=== PATIENT | male | born 1985 | race Hispanic/Latino ===

== ENCOUNTER 2021-10-18 13:25 | Emergency (ER) | payer OTHER ==
[2021-10-18 18:12] LABS: Basophils # (Auto) 0.1 K/mm3 (0.0-0.1); Basophils % (Auto) 1.1 % (0.0-1.8); Eosinophils # (Auto) 0.1 K/mm3 (0.0-0.4); Eosinophils % (Auto) 0.8 % (0.0-4.3); Hematocrit 44.3 % (35.5-45.6); Hemoglobin 14.7 gm/dl (11.8-15.2); Lymphocytes # (Auto) 1.4 K/mm3 (1.2-5.4); Lymphocytes % (Auto) 16.1 % (13.4-35.0); Mean Corpuscular HGB Conc 33 % (32-34); Mean Corpuscular Volume 97 fl (84-94); Monocytes # (Auto) 0.6 K/mm3 (0.0-0.8); Monocytes % (Auto) 6.6 % (0.0-7.3); Platelet Count 245 K/mm3 (140-440); Red Blood Count 4.58 M/mm3 (3.65-5.03); Red Cell Distribution Width 13.6 % (13.2-15.2)
[2021-10-18 18:32] LABS: Alanine Aminotransferase 26 units/L (7-56); Albumin 4.9 g/dL (3.9-5); Blood Urea Nitrogen 11 mg/dL (9-20); Calcium 9.2 mg/dL (8.4-10.2); Hemolysis Index 7
[2021-10-18 18:38] LABS: BUN/Creatinine Ratio 18
--- NOTE | 2021-10-18 19:02 | Emergency Department Report ---
ED Psych HPI - General Chief Complaint: Psych Stated Complaint: NEEDS DETOX Time Seen by Provider: 10/18/21 16:49 Source: patient Mode of arrival: Ambulatory - History of Present Illness MD Complaint: suicidal ideation -: Gradual, week(s) History of same: Yes Quality: constant Worsens With: achohol, drug use Context: recent alcohol abuse, recent drug abuse - Related Data Allergies Allergy/AdvReac Type Severity Reaction Status Date / Time Penicillins Allergy Unknown Verified 10/18/21 16:37 ED Review of Systems ROS: Stated complaint: NEEDS DETOX Other details as noted in HPI Constitutional: denies: chills, fever Eyes: denies: eye pain, eye discharge, vision change ENT: denies: ear pain, throat pain Respiratory: denies: cough, shortness of breath, wheezing Cardiovascular: denies: chest pain, palpitations Endocrine: no symptoms reported Gastrointestinal: denies: abdominal pain, nausea, diarrhea Genitourinary: denies: urgency, dysuria Musculoskeletal: denies: back pain, joint swelling, arthralgia Skin: denies: rash, lesions Neurological: denies: headache, weakness, paresthesias Psychiatric: denies: anxiety, depression Hematological/Lymphatic: denies: easy bleeding, easy bruising ED Past Medical Hx - Past Medical History Previous Medical History?: No Hx Hypertension: No Hx CVA: No Hx Psychiatric Treatment: Yes - Surgical History Past Surgical History?: No ED Physical Exam - General Limitations: No Limitations General appearance: alert, in no apparent distress - Head Head exam: Present: atraumatic, normocephalic - Eye Eye exam: Present: normal appearance - ENT ENT exam: Present: mucous membranes moist - Neck Neck exam: Present: normal inspection - Respiratory Respiratory exam: Present: normal lung sounds bilaterally. Absent: respiratory distress - Cardiovascular Cardiovascular Exam: Present: regular rate, normal rhythm. Absent: systolic murmur, diastolic murmur, rubs, gallop - GI/Abdominal GI/Abdominal exam: Present: soft, normal bowel sounds - Rectal Rectal exam: Present: deferred - Extremities Exam Extremities exam: Present: normal inspection - Back Exam Back exam: Present: normal inspection - Neurological Exam Neurological exam: Present: alert, oriented X3 - Psychiatric Psychiatric exam: Present: depressed, anxious, suicidal ideation - Skin Skin exam: Present: warm, dry, intact, normal color. Absent: rash ED Course Vital Signs 10/18/21 16:35 Temperature 98.4 F Pulse Rate 116 H Respiratory 18 Rate Blood Pressure 130/90 O2 Sat by Pulse 96 Oximetry ED Medical Decision Making - Lab Data Result diagrams: 10/18/21 17:25 10/18/21 17:25 Critical care attestation.: If time is entered above; I have spent that time in minutes in the direct care of this critically ill patient, excluding procedure time. ED Disposition Clinical Impression: Suicidal ideation Disposition: [address] [place] [address] Is pt being admited?: Yes Does the pt Need Aspirin: No Condition: Stable Referrals: PRIMARY CARE, [Primary Care Provider] - 3-5 Days
[2021-10-18] MEDS ORDERED: diphenhydrAMINE 50 MG/ML VIAL ONE (19:12)
[2021-10-18] MEDS ORDERED: LORazepam 1 MG TAB PO ONE (22:23)
[2021-10-18] MEDS ORDERED: LORazepam 2 MG/ML VIAL IV PRN (22:57)
[2021-10-19] MEDS: LORazepam 2 MG TAB PO PRN ×4 (01:52→17:49)
[2021-10-19 05:15] LABS: Bilirubin,Urine NEG (Negative); Blood,Urine NEG (Negative); Color,Urine Straw (Yellow); Protein,Urine <15 mg/dL mg/dL (Negative); RBC,Urine < 1.0 /HPF (0.0-6.0); Urobilinogen,Urine < 2.0 mg/dL (<2.0)
[2021-10-19 05:23] LABS: Amphetamine Screen,Urine Negative; Benzodiazepines Screen,Urine Negative; Cannabinoid Screen,Urine Negative; Methadone Screen,Urine Negative; Opiate Screen,Urine Negative
[2021-10-19 05:41] LABS: Cocaine Screen,Urine Positive
--- NOTE | 2021-10-19 09:40 | Consultation ---
History of Present Illness - Reason for Consult Consult date: 10/19/21 Reason for consult: SI, Alcohol/cocaine detox - History of Present Psychiatric Illness The patient was seen today. He keeps his face partially covered mostly with his linen. He is a 36y/o male patient who presented to the ER for suicidal thoughts with no plan. He verbalizes feeling depressed. The patient also says he needs detox from alcohol. He says "I drink anywhere from 4 to 15 beers a day and a bottle or two of liquor." He says his last drink was yesterday. The patient is sniffing a lot. I ask him was he crying. He says "yea, but mostly my nose is running from doing so much coke." He denies any psychiatric history. He denies being on any psych meds. He says he's tried rehab but failed. The patient states he is employed with family support. He denies hallucinations of any kind. REVIEW OF SYSTEMS Constitutional: Negative for weight loss ENT: Negative for stridor Respiratory: Negative for cough or hemoptysis All other systems reviewed and are negative MENTAL STATUS EXAMINATION General Appearance and Behavior: Age appropriate, good hygiene, wearing appropriate clothes. calm, and cooperative Cooperation: Cooperative Psychomotor Behavior: Psychomotor normal Mood: depressed Affect and affective range: congruent with stated mood Thought Process: goal directed Thought Content: Denies Speech: Increased tone and pace Suicidal Ideation: Yes Homicidal Ideation: Denies Hallucinations: Denies Delusions: None elicited Impulse Control: poor Insight and Judgment: poor insight and fair judgment Memory: Limited Attention: Attentive Orientation: a/o x 3 Assessment (1) Polysubstance Abuse (2) MDD Treatment Plan 1013 Start Prozac 20mg po daiy Start Doxepin 10mg po qhs Start Vistaril 25mg po BID Agree with CIWA Disposition: Recommend acute psychiatric inpatient treatment Will follow. Thanks Case staffed with Dr. Gonzalez Medications and Allergies Allergies Allergy/AdvReac Type Severity Reaction Status Date / Time Penicillins Allergy Unknown Verified 10/18/21 16:37 Active Meds: Active Medications Lorazepam (Lorazepam 2 Mg Tab) 2 mg PO Q1HR PRN PRN Reason: CIWA-Ar 8-15 Last Admin: 10/19/21 08:56 Dose: 2 mg Documented by: Lorazepam (Lorazepam 2 Mg Tab) 4 mg PO Q1HR PRN PRN Reason: CIWA-Ar 16-25 Lorazepam (Lorazepam 2 Mg/Ml Vial) 4 mg IV Q15MIN PRN PRN Reason: CIWA-Ar >25 Mental Status Exam - Vital signs Last Vital Signs Temp 97.6 F 10/19/21 09:31 Pulse 82 10/19/21 09:31 Resp 16 10/19/21 09:31 BP 144/95 10/19/21 09:31 Pulse Ox 98 10/19/21 09:31 Results Result Diagrams: 10/18/21 17:25 10/18/21 17:25 Abnormal lab results 10/18/21 10/18/21 10/18/21 Range/Units 17:25 17:25 17:25 MCV 97 H (84-94) fl Seg Neutrophils % 75.4 H (40.0-70.0) % Sodium 131 L (137-145) mmol/L Chloride 91.8 L (98-107) mmol/L Carbon Dioxide 21 L (22-30) mmol/L Creatinine 0.6 L (0.8-1.3) mg/dL Glucose 111 H (75-100) mg/dL AST 44 H (5-40) units/L Salicylates < 0.3 L (2.8-20.0) mg/dL Acetaminophen (10.0-30.0) ug/mL Plasma/Serum Alcohol (0-0.07) % 10/18/21 10/18/21 Range/Units 17:25 17:25 MCV (84-94) fl Seg Neutrophils % (40.0-70.0) % Sodium (137-145) mmol/L Chloride (98-107) mmol/L Carbon Dioxide (22-30) mmol/L Creatinine (0.8-1.3) mg/dL Glucose (75-100) mg/dL AST (5-40) units/L Salicylates (2.8-20.0) mg/dL Acetaminophen 5.0 L (10.0-30.0) ug/mL Plasma/Serum Alcohol 0.32 H (0-0.07) % All other labs normal.
--- NOTE | 2021-10-19 11:27 | Event Note ---
Date: 10/19/21 Patient is a 36-year-old male admitted to the ER for evaluation of suicidal ideation. Patient also found to be alcohol intoxicated and his UDS showed cocaine. Vital signs stable. Labs reviewed and is unremarkable except for UDS positive for cocaine. I will repeat his alcohol level today.
[2021-10-19] MEDS: FLUoxetine 20 MG CAP PO SCH (11:54)
[2021-10-19] MEDS: hydrOXYzine PAMOATE 25 MG CAP PO SCH ×2 (11:54→22:17)
[2021-10-19] MEDS ORDERED: DOXEPIN 10 MG CAP PO SCH (22:00)
[2021-10-20] MEDS: LORazepam 2 MG TAB PO PRN ×4 (01:09→14:34)
[2021-10-20] MEDS: hydrOXYzine PAMOATE 25 MG CAP PO SCH ×2 (10:29→23:19)
[2021-10-20] MEDS: FLUoxetine 20 MG CAP PO SCH (10:29)
[2021-10-20] MEDS ORDERED: IBUPROFEN 600 MG TAB PO ONE (10:39)
[2021-10-20] MEDS ORDERED: NICOTINE 21 MG/24 HR PATCH TD ONE (10:46)
--- NOTE | 2021-10-20 11:15 | XRay Report ---
CHEST 2 VIEWS INDICATION / CLINICAL INFORMATION: Injury with chest pain. COMPARISON: None available. FINDINGS: SUPPORT DEVICES: None. HEART / MEDIASTINUM: The heart size and pulmonary vasculature are normal. The aorta is normal in robin holly and there is no mediastinal widening. LUNGS / PLEURA: No significant pulmonary or pleural abnormality. No pneumothorax. ADDITIONAL FINDINGS: No acute osseous abnormality is seen. IMPRESSION: No acute findings. Signer Name: Diego Herrera MD Signed: 10/20/2021 11:10 AM Workstation Name: [id number]
--- NOTE | 2021-10-20 11:20 | Progress Note ---
Subjective - Reason for Consult Consult date: 10/20/21 Reason for consult: SI - Chief Complaint Chief complaint: The patient was seen today. He verbalizes being depressed and needing help. He also endorses suicidal thoughts by running into traffic. He denies hallucinations of any kind. The patient says he didn't sleep well. REVIEW OF SYSTEMS Constitutional: Negative for weight loss ENT: Negative for stridor Respiratory: Negative for cough or hemoptysis All other systems reviewed and are negative MENTAL STATUS EXAMINATION General Appearance and Behavior: Age appropriate, good hygiene, wearing delroy ropriate clothes. calm, and cooperative Cooperation: Cooperative Psychomotor Behavior: Psychomotor normal Mood: depressed Affect and affective range: congruent with stated mood Thought Process: goal directed Thought Content: Denies Speech: Increased tone and pace Suicidal Ideation: Yes Homicidal Ideation: Denies Hallucinations: Denies Delusions: None elicited Impulse Control: poor Insight and Judgment: poor insight and fair judgment Memory: Limited Attention: Attentive Orientation: a/o x 3 Assessment (1) Polysubstance Abuse (2) MDD Treatment Plan 1013 Increase Prozac 30mg po daiy Increase Doxepin 25mg po qhs Continue Vistaril 25mg po BID Agree with CIWA Disposition: Recommend acute psychiatric inpatient treatment Will follow. Thanks Case staffed with Dr. Gonzalez Mental Status Exam - Vital signs Last Vital Signs Temp 97.8 F 10/20/21 07:50 Pulse 85 10/20/21 07:50 Resp 18 10/20/21 07:50 BP 122/83 10/20/21 07:50 Pulse Ox 97 10/20/21 08:07
[2021-10-20] MEDS ORDERED: HALOPERIDOL LACTATE 5 MG/1 ML INJ IM ONE (11:21)
--- NOTE | 2021-10-20 11:24 | Emergency Department Report ---
Blank Doc - Documentation Documentation: 36-year-old male 2013 for suicidal ideation with cocaine abuse and alcohol dep endence. Currently seen Ativan as per [facility] protocol. Vital signs remained stable or signs of hypotension or tachycardia. Patient developed only very patient had only very mild tremors on examination. Nurse reported patient having episodes of agitation and restlessness despite Ativan. IM Haldol ordered. Patient currently receiving p.o. meds as per mental health. Covid test pending
[2021-10-20] MEDS ORDERED: LORazepam 2 MG TAB PO PRN ×2 (19:13)
[2021-10-20] MEDS ORDERED: DOXEPIN 25 MG CAP PO SCH (22:00)
[2021-10-20 22:55] VITALS: BP 138/95
[2021-10-20] MEDS ORDERED: ZIPRASIDONE MESYLATE 20 MG VIAL IM ONE (23:49)
[2021-10-21] MEDS: hydrOXYzine PAMOATE 25 MG CAP PO SCH (09:47)
[2021-10-21] MEDS ORDERED: FLUoxetine 10 MG TAB PO SCH (10:00)
--- NOTE | 2021-10-21 11:47 | Progress Note ---
Subjective - Reason for Consult Consult date: 10/21/21 Reason for consult: alcohol/drugs - Chief Complaint Chief complaint: The patient was seen today. He says "I feel much better." He says "I'm irritated because they won't let me use the phone." He says "I'm ready to go. I'm not suicidal or any of that. I came here for my alcohol and drugs." He denies hallucinations of any kind. REVIEW OF SYSTEMS Constitutional: Negative for weight loss ENT: Negative for stridor Respiratory: Negative for cough or hemoptysis All other systems reviewed and are negative MENTAL STATUS EXAMINATION General Appearance and Behavior: Age appropriate, good hygiene, wearing appropriate clothes. calm, and cooperative Cooperation: Cooperative Psychomotor Behavior: Psychomotor normal Mood: irritated Affect and affective range: congruent with stated mood Thought Process: goal directed Thought Content: Denies Speech: Increased tone and pace Suicidal Ideation: Denies Homicidal Ideation: Denies Hallucinations: Denies Delusions: None elicited Impulse Control: Limited Insight and Judgment: Limited insight and fair judgment Memory: Limited Attention: Attentive Orientation: a/o x 3 Assessment (1) Polysubstance Abuse (2) MDD Treatment Plan d/c 1013 Prozac 40mg po daiy Doxepin 25mg po qhs Vistaril 25mg po BID Disposition: Do not recommend acute psychiatric inpatient treatment. The patient understands that if SI/HI arise he is to seek immediate assistance. The coordinating producer to give the patient all necessary resources including drug and [facility] rehab. The patient to abstain from all illicit drug use and alcohol He is to follow up with outpatient psych in 7 to 14 days upon discharge Will sign off. Thanks Case staffed with Dr. Gonzalez Mental Status Exam - Vital signs Last Vital Signs Temp 97.3 F L 10/20/21 22:54 Pulse 108 H 10/20/21 22:54 Resp 18 10/20/21 22:54 BP 138/95 10/20/21 22:54 Pulse Ox 96 10/20/21 22:54
--- NOTE | 2021-10-21 12:35 | Emergency Department Report ---
Blank Doc - Documentation Documentation: Patient feels better this morning. He is no longer suicidal or homicidal. Th ere is no evidence of acute delusion or psychosis. He feels comfortable going home and would like to do so. Psychiatric services agrees. Resources have been provided. He can follow-up with his family physician.
== END 2021-10-21 13:05 | disposition home or self-care (01) ==
LOC: ED 13:25
DX: F32.9 Major depressive disorder, single episode, unspecified (principal); R45.851 Suicidal ideations; F19.10 Other psychoactive substance abuse, uncomplicated; Z20.822 Contact with and (suspected) exposure to COVID-19
CPT/HCPCS: 36415; 71046; 80053; 80307; 81001; 85025; 96372; 99284; J1200; J1630; J3486; Q0177; U0003; 80320; J3490; G0480

== ENCOUNTER 2022-02-23 13:30 | Emergency (ER) | payer SELFPAY ==
[2022-02-23] MEDS ORDERED: LORazepam 2 MG/ML VIAL IV PRN ×3 (13:45)
--- NOTE | 2022-02-23 13:45 | Emergency Department Report ---
HPI - General Chief Complaint: Psych Time Seen by Provider: 02/23/22 13:37 - HPI HPI: Room 12 The patient is a 36-year-old male present with chief complaint of suicidal ideation. Patient states he was released from care home this morning and stated he wanted to go home but cannot go home so he subsequently developed suicidal ideation. When asked if he done anything to harm himself the patient's initially says no but then says drank a lot of alcohol. The patient states he has a plan to walk out into traffic on [facility] ED Past Medical Hx - Past Medical History Previous Medical History?: No - Surgical History Past Surgical History?: No - Family History Family history: no significant - Social History Smoking Status: Current Every Day Smoker (1 pack/day) Substance Use Type: Alcohol (Daily), Other (Ecstasy) - Medications Home Medications: Home Medications Medication Instructions Recorded Confirmed Last Taken Type Doxepin [SINEquan] 25 mg PO QHS #30 capsule 02/24/22 Unknown Rx FLUoxetine HCL [PROzac] 40 mg PO QDAY #30 capsule 02/24/22 Unknown Rx hydrOXYzine PAMOATE [Vistaril] 25 mg PO BID PRN #60 capsule 02/24/22 Unknown Rx ED Review of Systems ROS: Stated complaint: SI WITH A PLAN Other details as noted in HPI Constitutional: no symptoms reported Eyes: denies: eye pain ENT: denies: throat pain Respiratory: no symptoms reported Cardiovascular: denies: chest pain Endocrine: no symptoms reported Gastrointestinal: denies: abdominal pain Genitourinary: denies: dysuria Musculoskeletal: denies: back pain Neurological: denies: headache Psychiatric: suicidal thoughts Physical Exam - Physical Exam Vital Signs: Vital Signs 02/23/22 13:31 Temperature 98 F Pulse Rate 97 H Respiratory 14 Rate Blood Pressure 141/90 [Left] O2 Sat by Pulse 99 Oximetry Physical Exam: GENERAL: The patient is well-developed well-nourished male appearing intoxicated sitting in chair not appearing to be in acute. [] HEENT: Normocephalic. Atraumatic. Extraocular motions are intact. Patient has moist mucous membranes. NECK: Supple. Trachea midline CHEST/LUNGS: Clear to auscultation. There is no respiratory distress noted. HEART/CARDIOVASCULAR: Regular. There is no tachycardia. There is no gallop rub or murmur. ABDOMEN: Abdomen is soft, nontender. Patient has normal bowel sounds. There is no abdominal distention. SKIN: There is no rash. There is no edema. There is no diaphoresis. NEURO: The patient is awake, alert, and oriented. The patient is cooperative. The patient has no focal neurologic deficits. The patient has normal speech. GCS 15 MUSCULOSKELETAL: There is no evidence of acute injury. ED Course Vital Signs 02/23/22 13:31 Temperature 98 F Pulse Rate 97 H Respiratory 14 Rate Blood Pressure 141/90 [Left] O2 Sat by Pulse 99 Oximetry ED Medical Decision Making - Lab Data Result diagrams: 02/23/22 16:42 02/23/22 16:42 - Differential Diagnosis Suicidal ideation Critical care attestation.: If time is entered above; I have spent that time in minutes in the direct care of this critically ill patient, excluding procedure time. ED Disposition Clinical Impression: Suicidal ideation, Major depression Disposition: HOME / SELF CARE / HOMELESS Is pt being admited?: No Does the pt Need Aspirin: No Condition: Stable Additional Instructions: Professional and Agency Contacts To help Resolve Crises(10/05) [place] Crisis Line: Suicide Prevention Line: Crisis Text Line: Text START to 235185 Emergency: 911 Outpatient COMMUNITY Behavioral Health Resources: DERYANNB: [facility] [address] [place], [place] [address] [facility] [address] [place] [address] [facility] - [address] [place] [address] Wednesday thru Wednesday - 8am - 5pm [place]: [facility] Address: [address], [place] [address] [facility] Address: [address] [place] [address] Wednesday thru Wednesday- 7am-2pm [facility] Address: [address] [place] [address] Wednesday thru Wednesday: 8:30AM-5PM OUTPATIENT MENTAL HEALTH RESOURCES [facility], [address], [place] [address] DOMINIQUE Adler MD: [address] [place], [place] [id number] [facility]: [address] [place] [address] [facility] [address] [place] [address] [phone] [facility]: [address] [place] [address] [phone] [facility]: [address] [facility] [address] [facility] [id number] [facility]: [address] [place] [address] Jc Wells MD: [address] [facility] [id number] [facility]: [address] [facility] [facility] [place], [place] [id number] [phone] [place] CRISIS AND ACCESS LINE: * In case of an emergency, please contact the following numbers: [place] Crisis and Access Line: Number: Crisis Text Line: (Text START) Number: 654615 Suicide Prevention Line: Number: Emergency Number: 911 SUBSTANCE ABUSE PROGRAMS: [facility]: Location: [place], [place] [facility] Address: [address] [place] [address] [facility]: Address: [address] [place] [address] [facility]: Address: [address] [place] [address] [facility]: Address: [address] [place] [address] [facility] Address: [address] [place] [id number]. Please contact above numbers to attempt placement into free based program. Medicaid Programs: [facility]: Address: [address] [facility], [place] [address] [facility]: Address: [address] [place] [address] Phone: [phone] HOMELESS RESOURCES: [facility] NEED HELP? If you are in need of help or know someone who does, please contact us at [email or web address] or call , or come to our offices at [address] [place] [address], Wednesday-Wednesday beginning at 8AM. [facility] Males only Admission at 7am Wed to Wed Address: [address] [address] [facility]agement Center [phone] Regular program admission occurs Wednesday through Wednesday at 7:00 am and operates on a first come, first serve basis. Because we cant anticipate program availability in advance and program spots are in high demand, we recommend arriving early. Space fills up fast! Next steps can include: Assignment to a [facility] program bed Connection to and placement in a partner program, or Referral to a partner agency [facility] [place] Admission at 4:30pm daily Address: [address] [place] [id number] [facility] Services Admission from 8am to 10am Daily No intake until 10/14/20 Address: [address] [place] [id number] [facility] [employer] goal is to take chronically homeless men and help them overcome their barriers, change them as human beings, making them productive and self-sufficient individuals. Each [employer] participant is housed at our facility for up to a year while they participate in transitional work (earning $7.40/hr for 30+ hours per week). All participants renounce dependency and remain drug and alcohol free. Personal support, case management, and workforce training is offered throughout the program. We also provide AA/NA Classes, GED classes, support in obtaining a student truck driver's licenses, help setting up a bank account, and life skill preparation courses. IF A MAN IS COMMITTED TO BEING CLEAN, TO ADDRESSING THE PAST, AND TO WORKING, WE WILL HELP HIM GET A CONCRETE PUMP OPERATOR JOB, TRANSPORTATION AND PERMANENT HOUSING WITHIN A YEAR. [facility] [address] [place] [address] [email or web address] Prescriptions: FLUoxetine HCL [PROzac] 40 mg PO QDAY #30 capsule Doxepin [SINEquan] 25 mg PO QHS #30 capsule hydrOXYzine PAMOATE [Vistaril] 25 mg PO BID PRN #60 capsule PRN Reason: Anxiety Referrals: [facility] [Outside] - 3-5 Days PRIMARY CARE, [Primary Care Provider] - 3-5 Days
[2022-02-23 17:27] LABS: Basophils # (Auto) 0.1 K/mm3 (0.0-0.1); Basophils % (Auto) 0.8 % (0.0-1.8); Eosinophils # (Auto) 0.1 K/mm3 (0.0-0.4); Hematocrit 43.4 % (35.5-45.6); Hemoglobin 14.5 gm/dl (11.8-15.2); Lymphocytes # (Auto) 2.3 K/mm3 (1.2-5.4); Lymphocytes % (Auto) 17.9 % (13.4-35.0); Mean Corpuscular HGB Conc 33 % (32-34); Mean Corpuscular Volume 95 fl (84-94); Monocytes % (Auto) 7.9 % (0.0-7.3); Platelet Count 233 K/mm3 (140-440); Red Blood Count 4.56 M/mm3 (3.65-5.03); Red Cell Distribution Width 12.9 % (13.2-15.2)
[2022-02-23 17:46] LABS: BUN/Creatinine Ratio 11; Blood Urea Nitrogen 9 mg/dL (9-20); Calcium 9.6 mg/dL (8.4-10.2); Hemolysis Index 9
[2022-02-24 09:58] VITALS: BP 115/74
--- NOTE | 2022-02-24 10:40 | Progress Note ---
Subjective - Reason for Consult Consult date: 02/24/22 Reason for consult: SI - Chief Complaint Chief complaint: HPI: The patient is a 36-year-old male present with chief complaint of suicidal ideation. Patient states he was released from long term this morning and stated he wanted to go home but cannot go home so he subsequently developed suicidal ideation. When asked if he done anything to harm himself the patient's initially says no but then says drank a lot of alcohol. The patient states he has a plan to walk out into traffic on [facility]. The patient was seen today. He is known to me from a previous visit. He is slightly irritable and reluctant to cooperate. His symptoms are vague. The patient says he feels "a little better" when asked how was he feeling. When asked what brought him to the hospital he says "I was suicidal." I ask the p atient was he currently feeling that way, he initially says no, then replies "a little bit." The patient admits to doing methamphetamines and alcohol daily. He says he doesn't take any meds. When asking him why wasn't he taking his meds, he replies "I don't know." Will reorder medications. No inpatient will be recommended, as this patient is stable enough to be seen by his outpatient psychiatrist. PAST PSYCHIATRIC HISTORY: Diagnoses: MDD, schizoaffective Suicide attempts or Self-harm behavior: Denies Prior psychiatric hospitalizations: Yes Substance Abuse history: alcohol, methamphetamines Previous psychiatric medications tried: prozac Outpatient treatment: Denies PAST MEDICAL HISTORY: None reported Family Psychiatric History: None reported or documented SOCIAL HISTORY Marital Status: Single Living Arrangements: alone Employment Status: Unemployed Access to guns/weapons: None reported Education: Ninth grade dropout History of Abuse: None reported Legal History: Yes specific details unknown REVIEW OF SYSTEMS Constitutional: Negative for weight loss ENT: Negative for stridor Respiratory: Negative for cough or hemoptysis All other systems reviewed and are negative MENTAL STATUS EXAMINATION General Appearance and Behavior: Age appropriate, good hygiene, wearing appropriate clothes, good eye contact, calm, cooperative Cooperation: reluctant to cooperative, but Guarded Psychomotor Behavior: Psychomotor normal Mood: "better" Affect and affective range: Euthymic Thought Process: goal directed Thought Content: none Speech: Normal tone and pace Suicidal Ideation: Denies, then "a little" Homicidal Ideation: Denies HI Impulse Control: Limited Insight and Judgment: Limited insight and judgment, Impaired Memory: Normal Attention: Attentive Orientation: Alert, oriented Assessment and Plan (1) Major Depressive Disorder (2) Polysubstance Dependence RECOMMENDATIONS d/c 1013 Prozac 20mg po daiy Doxepin 10mg po qhs Vistaril 25mg po BID BUSINESS CONTINUITY PLANNING DIRECTOR: Defer to primary DISPOSITION: Do not recommend acute inpatient psychiatric hospitalization. He understands that if any self harm thoughts or behaviors or any fear of endangerment are to arise he is to seek immediate assistance including but not limited to the crisis hotline, 1, ER. The cuff turner machine operator to further discuss safety plan The cuff turner machine operator is to give the patient resources for outpatient psychiatry, cognitive behavioral therapy, medication assistance, drug and alcohol rehab, transportation pass if needed, and fpc resources The patient to abstain from all illicit drug and alcohol use Follow up with outpatient psych and primary in 7 to 14 days upon discharge. Will sign off. Thank you for the consult. Please contact with any questions and/or concerns. Case staffed with Dr. Gonzalez. Mental Status Exam - Vital signs Last Vital Signs Temp 97.2 F L 02/24/22 08:56 Pulse 96 H 02/24/22 09:56 Resp 15 02/24/22 09:56 BP 115/74 02/24/22 09:56 Pulse Ox 100 02/24/22 09:56
[2022-02-24 11:15] LABS: Bilirubin,Urine NEG (Negative); Blood,Urine NEG (Negative); Color,Urine Yellow (Yellow); Protein,Urine <15 mg/dL mg/dL (Negative); RBC,Urine < 1.0 /HPF (0.0-6.0)
[2022-02-24 11:21] LABS: Amphetamine Screen,Urine Negative; Benzodiazepines Screen,Urine Negative; Cannabinoid Screen,Urine Negative; Cocaine Screen,Urine Negative; Methadone Screen,Urine Negative; Opiate Screen,Urine Negative
== END 2022-02-24 16:05 | disposition home or self-care (01) ==
LOC: ED 13:30 → EEVIPCON 13:30 → ED 02-24 16:05
DX: R45.851 Suicidal ideations (principal); F17.210 Nicotine dependence, cigarettes, uncomplicated; Z20.822 Contact with and (suspected) exposure to COVID-19; Z72.89 Other problems related to lifestyle; Z79.899 Other long term (current) drug therapy
CPT/HCPCS: 36415; 80048; 80307; 81001; 85025; 99284; U0003; 80320; G0480

== ENCOUNTER 2022-02-24 21:41 | Emergency (ER) | payer SELFPAY ==
[2022-02-25 08:51] LABS: Basophils # (Auto) 0.1 K/mm3 (0.0-0.1); Basophils % (Auto) 0.6 % (0.0-1.8); Eosinophils # (Auto) 0.3 K/mm3 (0.0-0.4); Eosinophils % (Auto) 2.2 % (0.0-4.3); Hematocrit 46.5 % (35.5-45.6); Hemoglobin 15.5 gm/dl (11.8-15.2); Lymphocytes # (Auto) 1.9 K/mm3 (1.2-5.4); Lymphocytes % (Auto) 15.8 % (13.4-35.0); Mean Corpuscular HGB Conc 33 % (32-34); Mean Corpuscular Volume 95 fl (84-94); Monocytes # (Auto) 0.9 K/mm3 (0.0-0.8); Monocytes % (Auto) 7.2 % (0.0-7.3); Platelet Count 260 K/mm3 (140-440); Red Blood Count 4.89 M/mm3 (3.65-5.03); Red Cell Distribution Width 12.9 % (13.2-15.2)
[2022-02-25 08:57] LABS: BUN/Creatinine Ratio 23; Blood Urea Nitrogen 18 mg/dL (9-20); Calcium 9.9 mg/dL (8.4-10.2); Hemolysis Index 5
[2022-02-25 09:27] VITALS: BP 125/86
--- NOTE | 2022-02-25 11:13 | Progress Note ---
Subjective - Reason for Consult Consult date: 02/25/22 Reason for consult: SI - Chief Complaint Chief complaint: The patient was seen today. He was cleared by psych yesterday. It's documented that the patient came and appeared intoxicated. The patient is vague in his symptoms and evasive. He says he was at a [facility] in [place]. When asking the patient was he still suicidal, he becomes irritable. He says "yall keep asking me that." He then says "it comes and goes." He denies hallucinations of any kind. The patient is clear from a psych standpoint. He can be managed on an outpatient basis. REVIEW OF SYSTEMS Constitutional: Negative for weight loss ENT: Negative for stridor Respiratory: Negative for cough or hemoptysis All other systems reviewed and are negative MENTAL STATUS EXAMINATION General Appearance and Behavior: Age appropriate, good hygiene, wearing appropriate clothes, good eye contact, calm, evasive, irritable at times Cooperation: reluctant to cooperative Psychomotor Behavior: Psychomotor normal Mood: "okay" Affect and affective range: Euthymic Thought Process: goal directed Thought Content: none Speech: Normal tone and pace Suicidal Ideation: comes and goes Homicidal Ideation: Denies HI Impulse Control: Limited Insight and Judgment: Limited insight and judgment, Impaired Memory: Normal Attention: Attentive Orientation: Alert, oriented Assessment and Plan (1) Major Depressive Disorder (2) Polysubstance Dependence RECOMMENDATIONS Continue meds prescribed yesterday 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 He understands that if any self harm thoughts or behaviors or any fear of endangerment are to arise he is to seek immediate assistance including but not limited to the crisis hotline, [address] [place] [address]. The support assistant to further discuss safety plan The support assistant is to give the patient resources for outpatient psychiatry, cognitive behavioral therapy, medication assistance, drug and alcohol rehab, transportation pass if needed, and group home resources The patient to abstain from all illicit drug and alcohol use Follow up with outpatient psych and primary in 7 to 14 days upon discharge. Will sign off. Thank you for the consult. Please contact with any questions and/or concerns. Case staffed with Dr. Gonzalez. Mental Status Exam - Vital signs Last Vital Signs Temp 98.0 F 02/24/22 21:50 Pulse 94 H 02/25/22 09:25 Resp 18 02/25/22 09:25 BP 125/86 02/25/22 09:25 Pulse Ox 99 02/25/22 09:25
--- NOTE | 2022-02-25 11:35 | Event Note ---
Date: 02/25/22 Patient has been evaluated by our psychiatric team and recommended discharge and outpatient follow-up. Patient appears to be intoxicated last night with an alcohol level of 0.08. Patient denies any suicidal homicidal ideation. No visual or auditory hallucination. Patient is medically and psychiatrically stable for discharge.
== END 2022-02-25 12:43 | disposition left against medical advice (07) ==
LOC: ED 21:41
DX: R45.851 Suicidal ideations (principal); Z53.21 Procedure and treatment not carried out due to patient leaving prior to being seen by health care provider
CPT/HCPCS: 36415; 80048; 80320; 85025; G0480

== ENCOUNTER 2022-04-04 00:47 | Emergency (ER) | payer SELFPAY ==
[2022-04-04] MEDS ORDERED: KETOROLAC 30 MG/1 ML INJ IV ONE (10:57)
[2022-04-04] MEDS ORDERED: KETOROLAC 60 MG/2 ML INJ IM ONE (10:57)
[2022-04-04] MEDS ORDERED: LORazepam 1 MG TAB PO ONE (10:57)
--- NOTE | 2022-04-04 11:00 | Emergency Department Report ---
ED General Adult HPI - General Chief complaint: Extremity Problem,Nontraumatic Stated complaint: SWOLLEN ANKLES Time Seen by Provider: 04/04/22 10:27 Source: patient Mode of arrival: Ambulatory Limitations: No Limitations - History of Present Illness Initial comments: Patient presents with complaints of bilateral leg pain and swelling x2 weeks. He states he is homeless and has not been evaluated for the symptoms. Patient is also a heavy alcohol drinker and last drink was yesterday. No tremors, chest pain, headache, shortness of breath, or fever per patient. He rates his pain as a 9/10 in severity. He denies any loss of sensation in his legs or difficulty moving his legs. Severity scale (0 -10): 8 - Related Data Previous Rx's Medication Instructions Recorded Last Taken Type Doxepin [SINEquan] 25 mg PO QHS #30 capsule 02/24/22 Unknown Rx FLUoxetine HCL [PROzac] 40 mg PO QDAY #30 capsule 02/24/22 Unknown Rx hydrOXYzine PAMOATE [Vistaril] 25 mg PO BID PRN #60 capsule 02/24/22 Unknown Rx Sulfamethoxazole/Trimethoprim 1 each PO BID 10 Days #20 tab 04/04/22 Unknown Rx [Bactrim DS TAB] cephALEXin [Keflex] 500 mg PO Q8HR 10 Days #30 cap 04/04/22 Unknown Rx Allergies Allergy/AdvReac Type Severity Reaction Status Date / Time Penicillins Allergy Unknown Verified 10/18/21 16:37 ED Review of Systems ROS: Stated complaint: SWOLLEN ANKLES Other details as noted in HPI Constitutional: denies: chills, fever Respiratory: denies: cough Cardiovascular: denies: chest pain Gastrointestinal: denies: abdominal pain Musculoskeletal: denies: back pain Skin: change in color Neurological: denies: numbness, paresthesias, abnormal gait Hematological/Lymphatic: denies: easy bleeding, swollen glands ED Past Medical Hx - Past Medical History Previous Medical History?: No - Surgical History Additional Surgical History: hernia - Social History Smoking Status: Current Every Day Smoker Substance Use Type: Alcohol - Medications Home Medications: Home Medications Medication Instructions Recorded Confirmed Last Taken Type Doxepin [SINEquan] 25 mg PO QHS #30 capsule 02/24/22 Unknown Rx FLUoxetine HCL [PROzac] 40 mg PO QDAY #30 capsule 02/24/22 Unknown Rx hydrOXYzine PAMOATE [Vistaril] 25 mg PO BID PRN #60 capsule 02/24/22 Unknown Rx Sulfamethoxazole/Trimethoprim 1 each PO BID 10 Days #20 tab 04/04/22 Unknown Rx [Bactrim DS TAB] cephALEXin [Keflex] 500 mg PO Q8HR 10 Days #30 cap 04/04/22 Unknown Rx ED Physical Exam - General Limitations: No Limitations General appearance: alert, in no apparent distress - Head Head exam: Present: atraumatic, normocephalic - Neck Neck exam: Present: normal inspection - Respiratory Respiratory exam: Present: normal lung sounds bilaterally. Absent: respiratory distress - Cardiovascular Cardiovascular Exam: Present: regular rate, normal rhythm. Absent: systolic murmur, diastolic murmur, rubs, gallop - GI/Abdominal GI/Abdominal exam: Present: soft. Absent: distended, tenderness - Neurological Exam Neurological exam: Present: alert, oriented X3 - Psychiatric Psychiatric exam: Present: normal affect, normal mood - Skin Skin exam: Present: warm, dry, intact, other (Bilateral lower leg 3+ pitting edema noted with cellulitic changes; pedal pulses are normal bilaterally; full range of motion of the ankle and lower legs is noted with normal sensation) ED Course Vital Signs 04/04/22 04/04/22 04/04/22 01:57 10:18 12:00 Temperature 97.9 F 97.9 F 98.1 F Pulse Rate 92 H 92 H 85 Respiratory 20 18 18 Rate Blood Pressure 120/82 120/82 Blood Pressure 120/75 120/75 [Right] O2 Sat by Pulse 96 98 99 Oximetry 04/04/22 13:56 Temperature 98.0 F Pulse Rate 82 Respiratory 18 Rate Blood Pressure Blood Pressure 121/70 [Right] O2 Sat by Pulse 100 Oximetry ED Medical Decision Making - Lab Data Result diagrams: 04/04/22 10:52 04/04/22 10:52 - Medical Decision Making Bilateral cellulitis of the lower extremities noted on exam. Ultrasound performed is negative for any blood clots. Pedal pulses are normal on exam. No paleness of the skin noted. Patient given IV clindamycin. No fever or tachycardia is noted and white blood cell count is normal. Lactic acid test not indicated. Patient is not septic at this time. Discussed importance of antibiotic compliance. Penicillin allergy noted in chart, however patient states rash with penicillin and denies anaphylaxis. Discussed strict return precautions in detail with patient who verbalizes understanding he is stable for discharge home and nontoxic-appearing Critical care attestation.: If time is entered above; I have spent that time in minutes in the direct care of this critically ill patient, excluding procedure time. ED Disposition Clinical Impression: Cellulitis Disposition: HOME / SELF CARE / HOMELESS Is pt being admited?: No Condition: Stable Instructions: Cellulitis, Adult Prescriptions: Sulfamethoxazole/Trimethoprim [Bactrim DS TAB] 1 each PO BID 10 Days #20 tab cephALEXin [Keflex] 500 mg PO Q8HR 10 Days #30 cap Referrals: REYES PERRY MD [Primary Care Provider] - 2-3 Days
[2022-04-04 11:04] LABS: Basophils % (Auto) 0.2 % (0.0-1.8); Eosinophils # (Auto) 0.3 K/mm3 (0.0-0.4); Eosinophils % (Auto) 4.2 % (0.0-4.3); Hematocrit 41.3 % (35.5-45.6); Hemoglobin 13.8 gm/dl (11.8-15.2); Lymphocytes # (Auto) 0.8 K/mm3 (1.2-5.4); Lymphocytes % (Auto) 11.9 % (13.4-35.0); Mean Corpuscular HGB Conc 34 % (32-34); Mean Corpuscular Volume 99 fl (84-94); Monocytes # (Auto) 0.7 K/mm3 (0.0-0.8); Monocytes % (Auto) 10.6 % (0.0-7.3); Platelet Count 257 K/mm3 (140-440); Red Blood Count 4.18 M/mm3 (3.65-5.03); Red Cell Distribution Width 14.9 % (13.2-15.2)
[2022-04-04 11:31] LABS: Alanine Aminotransferase 33 units/L (7-56); Albumin 4.2 g/dL (3.9-5); Blood Urea Nitrogen 7 mg/dL (9-20); Calcium 9.2 mg/dL (8.4-10.2); Hemolysis Index 5
[2022-04-04 11:34] LABS: BUN/Creatinine Ratio 10
--- NOTE | 2022-04-04 13:01 | Vascular Lab Report ---
Bilateral lower extremity Doppler venous ultrasound INDICATION: Swelling FINDINGS: Bilateral common femoral veins, superficial femoral veins and popliteal veins have normal c ompressibility and phasic flow IMPRESSION: No evidence for DVT. Signer Name: Juan Manuel Chatterjee MD Signed: 04/04/2022 12:57 PM Workstation Name: [id number]
[2022-04-04 15:18] VITALS: BP 119/62
== END 2022-04-04 15:16 | disposition home or self-care (01) ==
LOC: ED 00:47
DX: L03.90 Cellulitis, unspecified (principal); Z88.0 Allergy status to penicillin; F17.200 Nicotine dependence, unspecified, uncomplicated; F10.20 Alcohol dependence, uncomplicated
CPT/HCPCS: 36415; 80053; 83880; 85025; 93970; 96365; 96375; 99284; J1885; J7502